=== PATIENT | female | born 1995 ===

== ENCOUNTER 2024-07-06 21:24 | Emergency (ER) | payer OTHER ==
[~2024-07-06] VITALS: Ht 162.6 cm; Wt 113.6 kg
[2024-07-06 21:40] VITALS: BP 137/82; PULSE 94; RESP 18; TEMP 98; O2SAT 97
== END 2024-07-07 00:30 | disposition left against medical advice (07) ==
LOC: ER 21:25
DX: G43.909 Migraine, unspecified, not intractable, without status migrainosus (principal); R52 Pain, unspecified; R42 Dizziness and giddiness; Z53.21 Procedure and treatment not carried out due to patient leaving prior to being seen by health care provider